=== PATIENT | female | born 1990 | race Caucasian/White ===

== ENCOUNTER 2023-11-30 19:48 | Emergency (ER) | payer OTHER, SELFPAY ==
[2023-11-30 19:49] VITALS: BMI 33.3
[2023-11-30 19:51] VITALS: BP 132/82
--- NOTE | 2023-11-30 21:09 | ED.GENMED ---
History of Present Illness
General
Chief Complaint: Throat Problem
Time Seen by Provider: 11/30/23 20:56
Travel History
Have you had any contact with someone who has COVID-19?: No
Do you have any symptoms of coronavirus? Fever > 100 degrees, chills, cough, shortness of breath, sore throat, loss of taste or smell, muscle aches, or headache?: No
History of Present Illness
History of Present Illness:
33-year-old female presents the emergency department for evaluation of right-sided throat pain. She states she noticed an abnormality on the right tonsil when she pushed on it 'pus came out'. She has only minimal pain at this time. No fevers or
chills. No dysphagia or voice changes. No neck range of motion changes
Past History
Past History
ED Past Medical History: None
ED Past Surgical History: None
Social History
Tobacco: Non-smoker
Living: with family
Family History
Family History: Negative Diabetes, Hypertension, Early CAD, Asthma or Cancer
Review of Systems
Review of Systems
Allergies reviewed?: Yes
All Other Systems: ROS reviewed and negative except as documented in HPI and ROS
Phy Exam
Physical Exam
Physical Exam:
GEN: Well appearing, NAD, WDWN
HEENT: Oral mucosa moist, no scleral icterus. There is evidence of recent bleeding to the right inferior tonsil. Overall the tonsils are not hypertrophic with no erythema and no exudates. Positive right superior cervical adenopathy
Cardiac: Regular rate
Lung: No respiratory distress, no tachypnea
MSK: No gross deformity or injuries
Skin: Good color, no pallor or jaundice, no rashes
Neuro: AO x3, moves all extremities freely
Psych: Calm, cooperative
Course
Orders/Labs/Results
Orders:
Orders
11/30/23 21:11
Rapid Strep Group A Urgent
MARIELENA Source: Throat/Pharynx
Specimen Description:
Date Specimen was Collected: 11/30/23
Time Specimen was Collected: 21:10
Vital Signs
Initial and Last Documented VS:
Initial Vital Signs
Temp Pulse Resp BP Pulse Ox
98.2 F 100 22 132/82 98
11/30/23 19:51 11/30/23 19:51 11/30/23 19:51 11/30/23 19:51 11/30/23 19:51
Last Documented Vital Signs
Temp Pulse Resp BP Pulse Ox
98.2 F 100 22 132/82 98
11/30/23 19:51 11/30/23 19:51 11/30/23 19:51 11/30/23 19:51 11/30/23 19:51
MDM/Problems Addressed
MDM/Problems Addressed:
Patient's rapid strep test is negative. Likely viral etiology. Oropharynx overall clear with no evidence for retropharyngeal or peritonsillar abscess
*Critical Care Note
Total Time (30-74mins, 75-104mins- exclusive of procedures): Not Applicable
ED Attending Note
-
Portions of this chart may have been created with voice recognition software.� Occasional wrong word or��sound alike� substitutions may have occurred due to the inherent limitations of voice recognition software.
Discharge Plan
Departure
Patient Disposition: Home (Routine Discharge)
Date of Disposition: 11/30/23
Time of Disposition: 22:24
Patient with high blood pressure during this ER visit?: No
Discharge Problem:
Lesion of tonsil
Prescriptions:
No Action
cyclobenzaprine 10 MG tablet
10 mg PO HSPRN PRN (Reason: muscle spasms) Qty: 7 0RF
hydrocodone-acetaminophen 1 TABLET tablet
1 tab PO Q4HPRN PRN (Reason: severe pain) Qty: 6 0RF
Referrals:
Aniya Witt MD [Family Provider] -
Activity Restrictions/Additional Instructions:
I would not expect your symptoms to worsen. Please take Tylenol and ibuprofen as well as salt water gargles to improve the discomfort. If the lesion does not resolve within 2 weeks please follow-up with your primary care physician for reevaluation
Interventions
Interventions:
*Risk Screen - Suicide Last Done: 11/30/23 19:51
*General Assessment Last Done: 11/30/23 21:12
*Neglect/Abuse Screening Last Done: 11/30/23 19:51
ED- Fall Risk Assessment Last Done: 11/30/23 21:36
*ED COVID-19 Vaccine History Last Done: 11/30/23 21:12
*Nursing Disposition Last Done: 11/30/23 22:36
ED-EENT Assessment Last Done: 11/30/23 21:06
ED- Pulmonary Assessment Last Done: 11/30/23 21:06
Discharge Date and Time
Discharge Date/Time: 11/30/23 22:38
== END 2023-11-30 22:38 | disposition home or self-care (01) ==
LOC: EMR 19:48
PROVIDERS: EMERGENCY PHYSICIAN Emergency Medicine; FAMILY PHYSICIAN Family Medicine
DX: J35.9 Chronic disease of tonsils and adenoids, unspecified (principal); Z82.49 Family history of ischemic heart disease and other diseases of the circulatory system
CPT/HCPCS: 99283; 87070; 87880

== ENCOUNTER 2024-12-03 14:04 | Emergency (ER) | payer OTHER, SELFPAY ==
[2024-12-03 14:29] VITALS: BP 139/87
[2024-12-03 15:11] LABS: % Eosinophils 2.1 % (0-6); % Immature Granulocytes 0.3 % (0-0.5); % Lymphocytes 29.8 % (20.5-51.1); % Monocytes 7.5 % (1.7-9.3); % Neutrophils 59.3 % (42.2-75.2); Absolute Basophils 0.1 10^3/uL (0-0.2); Absolute Eosinophils 0.2 10^3/uL (0-0.7); Absolute Lymphocytes 2.1 10^3/uL (1.2-3.4); Absolute Monocytes 0.5 10^3/uL (0.1-0.6); Absolute Neutrophils 4.2 10^3/uL (1.4-6.5); Hemoglobin 12.6 g/dL (12.0-16.0); Mean Corp Hgb Conc. 33.2 g/dL (33.0-37.0); Mean Corpuscular Hgb 26.4 pg (27.0-31.0); Mean Corpuscular Volume 79.5 fL (81.0-99.0); Mean Platelet Volume 9.6 fL (7.4-10.4); Nucleated Red Blood Cells % 0 %; Platelet Count 316 10^3/uL (130-400); Red Blood Cell Count 4.78 10^6/uL (4.20-5.40); Red Cell Dist. Width 12.6 % (11.5-14.5); White Blood Cell Count 7.1 10^3/uL (4.8-10.8)
[2024-12-03 15:26] LABS: HCG, Serum Qualitative Screen Negative
[2024-12-03 15:28] LABS: ALT (SGPT) 20 U/L (0-35); AST (SGOT) 25 U/L (14-36); Albumin 4.9 g/dl (3.5-5.0); Alkaline Phosphatase 54 U/L (38-126); Blood Urea Nitrogen 12 mg/dl (7-17); Calcium 9.7 mg/dl (8.4-10.2); Carbon Dioxide 25 mmol/L (22-30); Chloride 101 mmol/L (98-107); Glucose 114 mg/dl (70-99); Potassium 4.7 mmol/L (3.5-5.1); Sodium 137 mmol/L (135-145); Total Bilirubin 0.7 mg/dl (0.2-1.3); Total Protein 7.7 g/dl (6.3-8.2); eGFR > 60.00
[2024-12-03 15:32] LABS: Urine Albumin Negative (Neg - Trace); Urine Bilirubin Negative (Negative); Urine Character Clear (Clear); Urine Color Yellow; Urine Glucose Negative (Negative); Urine Ketone Negative (Negative); Urine Leukocyte 1+ (Negative); Urine Nitrite Negative (Negative); Urine Occult Blood Negative (Negative); Urine Urobilinogen Negative (Neg - 1+)
[2024-12-03 16:22] LABS: Urine Squamous Cell >30 /LPF (Few)
[2024-12-03 16:23] LABS: Urine Bacteria Few (Negative); Urine Red Blood Cell 0-2 /HPF (0-2)
[2024-12-03 17:24] VITALS: BP 117/82
--- NOTE | 2024-12-03 17:59 | ED.GENMED ---
History of Present Illness
General
Chief Complaint: Dizziness
Time Seen by Provider: 12/03/24 17:31
History of Present Illness
History of Present Illness:
34-year-old female with no significant past medical history presents to the emergency department for evaluation of an abrupt onset of lightheadedness, chest discomfort and shortness of breath that began earlier today. The symptoms have since
resolved upon arriving to the ED. She notes that during the period of symptoms her blood pressure was elevated at 140/100, no prior history of hypertension. Does note that she recently underwent had wisdom tooth surgery.
Past History
Past History
ED Past Medical History: None
ED Past Surgical History: None
Social History
Tobacco: Non-smoker
Living: with family
Family History
Family History: Negative Diabetes, Hypertension, Early CAD, Asthma or Cancer
Review of Systems
Review of Systems
Allergies reviewed?: Yes
All Other Systems: ROS reviewed and negative except as documented in HPI and ROS
Phy Exam
Physical Exam
Physical Exam:
GEN: Well appearing, NAD, WDWN
HEENT: Oral mucosa moist, no scleral icterus
Cardiac: Regular rate and rhythm
Lung: No respiratory distress, no tachypnea, lungs CTAB
MSK: No gross deformity or injuries
Skin: Good color, no pallor or jaundice, no rashes
Neuro: AO x3, moves all extremities freely
Psych: Calm, cooperative
Course
Orders/Labs/Results
Orders:
Orders
12/03/24 14:33
Electrocardiogram (*1) Urgent
Reason for Study: Chest Pain
12/03/24 14:34
EKG- Treatment ONCE
Test Result ONCE
12/03/24 14:56
Complete Blood Count/With Diff Urgent
Urinalysis Reflex To Culture Urgent
Date Specimen was Collected: 12/03/24
Time Specimen was Collected: 14:34
Urine Microscopic Reflex Cult Urgent
Urine Culture Urgent
MARIELENA Source: U
Specimen Description:
Date Specimen was Collected: 12/03/24
Time Specimen was Collected: 14:34
12/03/24 14:57
Comprehensive Metabolic Panel Routine
HCG, Serum Qualitative Screen Urgent
Abnormal Lab Results
12/03/24 12/03/24
14:56 14:57
MCV 79.5 L fL
(81.0-99.0)
MCH 26.4 L pg
(27.0-31.0)
Glucose 114 H mg/dl
(70-99)
Leukocyte Esterase Rfl 1+ A
(Negative)
Urine WBC (Reflex) 11-15 A /HPF
(0-5)
Urine Bacteria (Reflex) Few A
(Negative)
12/03/24 14:56
12/03/24 14:57
Vital Signs
Initial and Last Documented VS:
Initial Vital Signs
Temp Pulse Resp BP Pulse Ox
98.9 F 94 16 139/87 98
12/03/24 14:29 12/03/24 14:29 12/03/24 14:29 12/03/24 14:29 12/03/24 14:29
Last Documented Vital Signs
Temp Pulse Resp BP Pulse Ox
98.1 F 77 18 117/82 100
12/03/24 17:24 12/03/24 17:24 12/03/24 17:24 12/03/24 17:24 12/03/24 17:24
MDM/Problems Addressed
MDM/Problems Addressed:
Patient appears clinically well at this time with unremarkable labs. She is normotensive in the ED
*Critical Care Note
Total Time (30-74mins, 75-104mins- exclusive of procedures): Not Applicable
ED Attending Note
-
Portions of this chart may have been created with voice recognition software.� Occasional wrong word or��sound alike� substitutions may have occurred due to the inherent limitations of voice recognition software.
Discharge Plan
Departure
Patient Disposition: Home (Routine Discharge)
Date of Disposition: 12/03/24
Time of Disposition: 18:04
Patient with high blood pressure during this ER visit?: No
Discharge Problem:
Chest tightness
Prescriptions:
No Action
cyclobenzaprine 10 MG tablet
10 mg PO HSPRN PRN (Reason: muscle spasms) Qty: 7 0RF
hydrocodone-acetaminophen 1 TABLET tablet
1 tab PO Q4HPRN PRN (Reason: severe pain) Qty: 6 0RF
Referrals:
Aniya Witt MD [Family Provider] -
Interventions
Interventions:
*Risk Screen - Suicide Last Done: 12/03/24 14:29
*General Assessment Last Done: 12/03/24 18:08
*Neglect/Abuse Screening Last Done: 12/03/24 14:29
*ED- Fall Risk Assessment Last Done: 12/03/24 18:08
*ED COVID-19 Vaccine History Last Done: 12/03/24 18:08
*Nursing Disposition Last Done: 12/03/24 18:08
ED- Cardiac Assessment Last Done: 12/03/24 18:08
ED- Neurological Assessment Last Done: 12/03/24 18:08
Discharge Date and Time
Discharge Date/Time: 12/03/24 18:08
Print Language: VINCENTIAN
== END 2024-12-03 18:08 | disposition home or self-care (01) ==
LOC: EMR 14:04
PROVIDERS: EMERGENCY PHYSICIAN Emergency Medicine; FAMILY PHYSICIAN Family Medicine
DX: R07.89 Other chest pain (principal); Z82.49 Family history of ischemic heart disease and other diseases of the circulatory system
CPT/HCPCS: 99283; 80053; 81003; 81015; 84703; 85025; 87086; 93005